=== PATIENT | female | born 1985 | race Caucasian/White ===

== ENCOUNTER 2017-07-14 08:52 | Emergency (ER) | payer MEDICAID ==
[~2017-07-14] VITALS: Ht 152.4 cm; Wt 81.6 kg
[2017-07-14 09:14] VITALS: BP 118/78; Ht 152.4 cm; Wt 81.6 kg
== END 2017-07-14 11:33 | disposition home or self-care (01) ==
LOC: ED 08:52
DX: H66.91 Otitis media, unspecified, right ear (principal)

== ENCOUNTER 2018-06-29 21:27 | Emergency (ER) | payer MEDICAID ==
[~2018-06-29] VITALS: Ht 152.4 cm; Wt 66.2 kg
[2018-06-29 21:36] VITALS: Ht 152.4 cm; Wt 66.2 kg
[2018-06-29 22:44] LABS: BASOPHIL % 0.6 % (0-2); PLATELET COUNT 306 x10^3mcL (130-400); RED CELL DISTRIBUTION WIDTH 13.7 % (11.5-14.5)
[2018-06-29 22:46] LABS: CALCIUM 8.8 mg/dL (8.5-10.1); CARBON DIOXIDE 27.6 mmol/L (21-32); CHLORIDE SERUM 103 mmol/L (98-107); CREATININE SERUM 0.5 mg/dL (0.6-1.0); GFR1 > 60 mL/min; GLUCOSE SERUM 83 mg/dL (74-106); POTASSIUM SERUM 3.8 mmol/L (3.5-5.1); SODIUM SERUM 138 mmol/L (136-145)
[2018-06-29 22:51] LABS: ALBUMIN 3.7 g/dL (3.4-5.0); ALKALINE PHOSPHATASE 69 U/L (46-116); ALT/SGPT 18 U/L (14-59); AST/SGOT 18 U/L (15-37); BILIRUBIN TOTAL 0.21 mg/dL (0.20-1.00); TOTAL PROTEIN, SERUM 7.5 g/dL (6.4-8.2)
[2018-06-29 23:52] LABS: UA SPECIFIC GRAVITY 1.025 (1.005-1.035); microscopic required? YES; urine erythrocyte TRACE (NEGATIVE)
[2018-06-30 00:06] VITALS: BP 112/70
== END 2018-06-30 00:06 | disposition home or self-care (01) ==
LOC: ED 21:27
PROVIDERS: Emergency Medicine
DX: O23.41 Unspecified infection of urinary tract in pregnancy, first trimester (principal); Z3A.01 Less than 8 weeks gestation of pregnancy
CPT/HCPCS: 36415; J7030